=== PATIENT | female | born 1985 | race Two or more races ===

== ENCOUNTER → 2025-05-28 | Outpatient (CLI) | payer MEDICAID, SELFPAY ==
[2025-05-28 09:51] LABS: HCG Qualitative,Urine Negative
--- NOTE | 2025-05-28 10:00 | XR_ITS ---
Examination: CT abdomen without intravenous contrast. Coronal 2-D reconstructions. Sagittal 2-D reconstructions. Date and time of exam: May 28, 2025, 1022 hours INDICATIONS: Diagnosis liver disease made 3 months ago CTDI: vol (mGy): 6.05 DLP: (mGycm): 181 Technique: Axial images of the abdomen have been obtained, 3 mm slice thickness, without intravenous contrast 2-D sagittal coronal reconstructions Low dose protocols were performed. One or more of the following dose reduction techniques were used; automated exposure control, adjustment of the mA and/or KV according to patient size, use of iterative reconstruction technique. Findings: Multiple liver lesions on this noncontrast study, the largest in the upper anterior right lobe of the liver 5 cm, the largest in the mid right liver 4.3 cm Spleen not enlarged No pancreatic or adrenal mass No hydronephrosis Abdominal lymphadenopathy, left lateral para-aortic lymph nodes including 12 mm, 14 mm, 12 mm No bowel obstruction Partial visualization normal appendix Moderate osteopenia IMPRESSION: Multiple liver lesions, consider hepatic metastases Significant abdominal lymphadenopathy Recommend CT scan chest abdomen pelvis post intravenous contrast follow-up
== END | disposition home or self-care (01) ==
PROVIDERS: PCP Physician Assistant; Referring Provider Physician Assistant; Visit Provider Physician Assistant
DX: K76.9 Liver disease, unspecified (principal); R59.0 Localized enlarged lymph nodes; Z32.00 Encounter for pregnancy test, result unknown
CPT/HCPCS: 74150; 81025